=== PATIENT | female | born 1985 | race Caucasian/White ===

== ENCOUNTER → 2016-08-26 | Outpatient (CLI) | payer OTHER ==
[~2016-08-26] MED LIST: ACET50TA PO; IBUP80TA PO; METF500T PO; PRENTAB9 PO
== END ==
LOC: M LRY 14:03
PROVIDERS: ATTEND Nurse Practitioner Women's Health
DX: Z36 Encounter for antenatal screening of mother (principal)

== ENCOUNTER → 2016-09-07 | Outpatient (CLI) | payer OTHER ==
--- NOTE | 2016-09-07 15:10 | REP ---
LIMITED OBSTETRIC SONOGRAPHY: HISTORY: Supervision of , cardiovascular disorder originating in the period. FINDINGS: Scanning through the gravid uterus demonstrates a viable single intrauterine gestation in a cephalic lie. Placenta is posterior without evidence of previa grade 1. Umbilical cord is seen draping across the shoulders. Amniotic fluid is subjectively normal. JOSE ENRIQUE is normal at 19.1 cm. Biophysical profile score is 8 out of a possible 8. The S/D ratio in the umbilical cord artery by Doppler is 3.01 (2.00 to 3.00). Estimated gestational age based on prior sonography is 34 weeks 5 days. DIMA by prior sonography October 14, 2016. Signed by Patric Lawrence MD 09/07/2016 04:26 P
== END ==
LOC: M RAD 14:06
PROVIDERS: ATTEND Nurse Practitioner Women's Health
DX: O24.419 Gestational diabetes mellitus in pregnancy, unspecified control (principal)

== ENCOUNTER → 2016-09-23 | Outpatient (CLI) | payer OTHER ==
--- NOTE | 2016-09-23 15:43 | REP ---
Obstetric ultrasound for well being: There is a single intrauterine gestation in a vertex presentation. Gestational age based on the first ultrasound during this gestation is 37 weeks 0 days with an DIMA of 10/14/2016. heart rate is 150 beats per minute. Amniotic fluid volume subjectively is normal. Amniotic fluid index is 18.5, (7.5 - 24.4). biophysical profile: breathing 2, movement 2, tone 2, amniotic fluid volume 2, total 8 out of 8. The placenta is posterior fundal without previa or abruptio and is grade II. Umbilical artery Doppler assessment: SD ratio 3.03. (1.6 - 2.6). Resistive index 0.67 (0.59 - 0.75). Diastolic flow velocity 14.6 cm/sec (normal). Signed by Uche Sears MD 09/23/2016 03:35 P
== END ==
LOC: M RAD 14:48
PROVIDERS: ATTEND Nurse Practitioner Women's Health
DX: Z05.0 Observation and evaluation of newborn for suspected cardiac condition ruled out (principal)